=== PATIENT | female | born 1970 | race Caucasian/White ===

== ENCOUNTER → 2016-04-18 | Outpatient (CLI) | payer OTHER ==
--- NOTE | 2016-04-18 14:36 | DX ---
Cervical spine,2 views 04/18/2016 History: Neck pain. Comparison examination: MRI cervical spine February 09, 2013. Findings: Moderate intervertebral disk height loss is present at C5-C6 and similar moderate disk heig ht loss at C6-C7. Facet degenerative changes are present at C7-T1. Alignment is normal. No fracture identified. Impression: Lower cervical degenerative disk disease and facet degenerative joint disease, as above.
== END ==
LOC: BMCIMAGING 11:44
PROVIDERS: ATTEND Internal Medicine Rheumatology
DX: M54.2 Cervicalgia (principal)

== ENCOUNTER → 2016-09-13 | Outpatient (CLI) | payer OTHER | LOC: BMCIMAGING 10:16 | PROVIDERS: ATTEND Internal Medicine Rheumatology | DX: M79.641 Pain in right hand (principal); M79.642 Pain in left hand; M79.671 Pain in right foot; M79.672 Pain in left foot ==

== ENCOUNTER → 2017-04-07 | Outpatient (CLI) | payer OTHER | LOC: CIMAGING 10:26 | PROVIDERS: ATTEND Family Medicine | DX: Z12.31 Encounter for screening mammogram for malignant neoplasm of breast (principal); Z80.3 Family history of malignant neoplasm of breast ==

== ENCOUNTER → 2018-02-11 | Outpatient (CLI) | payer OTHER ==
[~2018-02-11] MED LIST: IOPAMIDOL (ISOVUE 370) 100 ML BTL IV ONE; METOPROLOL TARTRATE 5 MG/5 ML INJ ONE
== END ==
LOC: FIMAGING 10:36
DX: I51.89 Other ill-defined heart diseases (principal)
CPT/HCPCS: 82565-PO; Q9967